=== PATIENT | female | born 1995 | race American Indian/Alaskan Native ===

== ENCOUNTER 2018-07-20 20:59 | Emergency (ER) | payer OTHER ==
[~2018-07-20] VITALS: Ht 160 cm; Wt 81.6 kg
[2018-07-21] MEDS ORDERED: CEFUROXIME250 MG PO (01:24)
== END 2018-07-21 01:43 | disposition home or self-care (01) ==
LOC: ER 20:59
DX: N39.0 Urinary tract infection, site not specified (principal); Z33.1 Pregnant state, incidental

== ENCOUNTER 2018-08-11 14:53 | Emergency (ER) | payer OTHER ==
[~2018-08-11] VITALS: Ht 160 cm; Wt 81.2 kg
[~2018-08-11 14:53] MED LIST: CEFUROXIME250 MG PO
== END 2018-08-11 19:21 | disposition home or self-care (01) ==
LOC: ER 14:53
DX: O21.0 Mild hyperemesis gravidarum (principal); O26.891 Other specified pregnancy related conditions, first trimester; R10.2 Pelvic and perineal pain; Z34.81 Encounter for supervision of other normal pregnancy, first trimester

== ENCOUNTER 2018-11-19 16:13 | Emergency (ER) | payer OTHER ==
[~2018-11-19] VITALS: Ht 157.5 cm; Wt 73.0 kg
== END 2018-11-19 21:20 | disposition home or self-care (01) ==
LOC: ER 16:13
DX: K11.21 Acute sialoadenitis (principal)

== ENCOUNTER → 2019-03-02 | Emergency (ER) | payer OTHER ==
[~2019-03-02] VITALS: Ht 157.5 cm; Wt 68.0 kg
[~2019-03-02] MED LIST changes: +CONCEPT DHA CA1 EACH PO
== END | disposition home or self-care (01) ==
LOC: ER 21:00
DX: O20.0 Threatened abortion (principal)

== ENCOUNTER 2019-03-23 18:22 | Emergency (ER) | payer OTHER ==
[~2019-03-23] VITALS: Ht 160 cm; Wt 68.0 kg
== END 2019-03-23 22:38 | disposition home or self-care (01) ==
LOC: ER 18:22
DX: O03.9 Complete or unspecified spontaneous abortion without complication (principal)

== ENCOUNTER 2021-12-03 14:54 | Emergency (ER) | payer OTHER ==
[~2021-12-03] VITALS: Ht 157.5 cm; Wt 74.4 kg
== END 2021-12-03 20:07 | disposition home or self-care (01) ==
LOC: ER 14:54
DX: O26.899 Other specified pregnancy related conditions, unspecified trimester (principal); O21.8 Other vomiting complicating pregnancy; Z3A.00 Weeks of gestation of pregnancy not specified; K52.89 Other specified noninfective gastroenteritis and colitis; R10.84 Generalized abdominal pain